=== PATIENT | female | born 1985 | race African-American/Black ===

== ENCOUNTER 2018-03-01 10:16 | Inpatient (IN) | payer BC ==
[2018-03-01] MEDS ORDERED: PROMETHAZINE 25 MG/ML VIAL IV PRN (10:33)
[2018-03-01] MEDS ORDERED: METHYLERGONOVINE 0.2MG/ML AMP IM PRN (10:33)
[2018-03-01] MEDS ORDERED: Ringers Lactate 1,000 ML IV PRN (10:33)
[2018-03-01] MEDS ORDERED: CARBOPROST TROME 250 MCG/ML IM PRN (10:33)
[2018-03-01] MEDS ORDERED: BUTORPHANOL 1 MG/ML INJ IV PRN (10:33)
[2018-03-01] MEDS ORDERED: Ringers Lactate 1,000 ML IV SCH (11:00)
[2018-03-01] MEDS ORDERED: OXYTOCIN/LR 20 UNIT/1,000 ML BAG IV SCH (11:45)
[2018-03-01 11:55] LABS: RPR Titer ND
[2018-03-01 12:13] LABS: Absolute Lymphocytes (CBC) 1.3 K/uL (0.7-4.9); Absolute Monocytes 0.5 K/uL (0.1-1.3); Basophils % 0.2 % (0-1.3); Eosinophils % 0.4 % (0-4.4); Hematocrit 27.8 % (36.0-45.0); Lymphocytes % 16.3 % (15.3-44.8); MCV 82.3 fL (80-100); MPV 9.6 fL (7.6-11.3); RBC Red Blood Cell Count 3.39 M/uL (3.86-4.86)
[2018-03-01 12:29] LABS: Urine Appearance CLEAR; Urine Bilirubin NEGATIVE (NEG); Urine Blood NEGATIVE (NEG); Urine Color YELLOW; Urine Glucose NEGATIVE (NEG); Urine Protein TRACE (NEG); Urine Urobilinogen 0.2 mg/dL (0.2-1.0)
[2018-03-01 12:49] LABS: Urine Microscopic Reflex NO UMIC
[2018-03-01] MEDS ORDERED: ROPIVACAINE HCL 100 ML IV PRN (13:04)
[2018-03-01] MEDS ORDERED: FENTANYL CITR 100 MCG/2 ML IV ONE (13:04)
[2018-03-01] MEDS ORDERED: ROPIVACAINE HCL 0.2% 20ML AMP IV ONE (13:05)
[2018-03-01] MEDS ORDERED: DOCUSATE NA/SENNA CONC 1 TAB PO PRN (17:28)
[2018-03-01] MEDS ORDERED: ACETAMINOPHEN 500 MG TAB PO PRN (17:28)
[2018-03-01] MEDS ORDERED: ONDANSETRON 4 MG (ODT) TAB PO PRN (17:28)
[2018-03-01] MEDS ORDERED: BISACODYL 10 MG RECTAL SUPP RECT PRN (17:28)
[2018-03-01] MEDS ORDERED: Oxycodone HCl/Acetaminophen 1 TAB TAB PO PRN (17:28)
[2018-03-01 18:04] VITALS: BMI 4701.1
[2018-03-01] MEDS: Oxycodone HCl/Acetaminophen 1 TAB TAB PO PRN (21:20)
--- NOTE | 2018-03-01 22:33 | P.OP ---
Date of Service: 03/01/18 Findings and Operative Technique Patient delivered a viable female in cephalic presentation on 03/01/18 at 17:07pm over an attempted episotomy. Infant was delivered in occiput posterior position with a nuchal cord x1 which was manually reduced. Once infant was delivered nose and mouth were suctioned with a suction bulb. Cord was then clamped and cut and infant was placed on the mother's abdomen for skin to skin bonding. Attention was then turned to the placenta which was then delivered with gentle traction. A significant amount of blood loss was then seen and methergine was given and pitocin started. Uterus was found to be firm. Perineum was then examined and noted to be a first degree laceration and was repaired with a 3.0 vicryl. Patient tolerated this well. EBL was 350 cc. APGARS were 9/ 9. Weight was found to be 7lb and 1 ounce. Both mom and baby are doing well. Will check hematocrit in a few hours due to blood loss.
[2018-03-01 23:09] LABS: RPR (Rapid Plasma Reagin) NON-REACT (NON-REACT)
[2018-03-02] MEDS: Oxycodone HCl/Acetaminophen 1 TAB TAB PO PRN (04:17)
--- NOTE | 2018-03-02 04:54 | HP ---
Date of Admission: 03/01/2018 History Of Present Illness: Theodore is a 32-year-old, 5, para 3-0-1-3, who presents at 39 we eks gestation for induction of labor. The patient has a history of 2 prior vaginal births and 1 cesa rean section and desires a trial of labor after prior . The patient understands the risks an d benefits of trial of labor and has fully consented to have this performed. She reports good movement. Denies vaginal bleeding. Has been having irregular contractions for the last week or so. The patient has been seen in my office throughout the care and has been compliant with all visits. She is Rh positive. GBS negative. She was seen by M during this due t o an echogenic foci being found on the baby's heart. Noninvasive testing was done, and it w as noted to be low risk. Glucose stress testing was normal. See record for further details . Physical Examination: Vital Signs: On admission, blood pressure 124/69, pulse of 86, respirations 18, temperature 98.7, pa in score 4/10. General: The patient resting comfortably in bed, in mild pain distress. Head and Neck: Normocephalic, supple. Heart: Regular rate and rhythm. Respiratory: Symmetric nonlabored breathing. Abdomen: Gravid. Extremities: Bilateral lower extremities, no clubbing, cyanosis, edema. Vaginal: Normal external female genitalia. Vagina is pink, moist, normal rugae. Cervix is 2 to 3 c m dilated, 50% to 60% effaced, -3 station. Rupture of membranes performed. Clear fluid noted. IUPC and scalp electrode were placed. heart rate monitoring category 2 tracing. [place] irregu lar contractions noted. Pitocin started at 2 milliunits. Laboratory Data: CBC: White blood cell count 7.8, hemoglobin 9.5, hematocrit 27.8, platelet count i s 133. Assessment And Plan: The patient is a 32-year-old, 5, para 3-0-1-3, who presents at 39 weeks gestation with history of prior section desiring a trial of labor after prior . Ru pture of membranes has been performed. Pitocin is started for labor augmentation. The patient is GB S negative. Continuous maternal monitoring will be performed. IUPC has been placed as well as scalp electrode. The patient desires epidural, will be requested and placed soon. Anticipate vaginal . HECTOR Voice ID: [id number]
[2018-03-02 05:42] LABS: Absolute Lymphocytes (CBC) 1.4 K/uL (0.7-4.9); Absolute Monocytes 0.9 K/uL (0.1-1.3); Absolute Neutrophil 9.2 K/uL (1.8-8.0); Basophils % 0.2 % (0-1.3); Eosinophils % 0.3 % (0-4.4); Hematocrit 24.7 % (36.0-45.0); Lymphocytes % 12.3 % (15.3-44.8); MCH 27.7 pg (27.0-35.0); MCV 82.5 fL (80-100); MPV 10.7 fL (7.6-11.3); Monocytes % 7.5 % (3.3-12.3); RBC Red Blood Cell Count 2.99 M/uL (3.86-4.86)
[2018-03-02] MEDS: IBUPROFEN 200 MG TAB PO PRN ×2 (07:50→13:45)
[2018-03-02 18:35] VITALS: BP 126/72; TEMP 98.2
[2018-03-03 19:49] LABS: HBsAG Nonreactive (Nonreactive)
== END 2018-03-02 20:00 | disposition home or self-care (01) | DRG 775 ==
LOC: 2ND-WC 10:16
PROVIDERS: ADMIT Student in an Organized Health Care Education/Training Program; ATTEND Student in an Organized Health Care Education/Training Program
PROC: 0HQ9XZZ Repair Perineum Skin, External Approach (ICD-10-PCS; principal; 2018-03-01)
PROC: 10E0XZZ Delivery of Products of Conception, External Approach (ICD-10-PCS; 2018-03-01)
PROC: 10907ZC Drainage of Amniotic Fluid, Therapeutic from Products of Conception, Via Natural or Artificial Opening (ICD-10-PCS; 2018-03-01)
DX: O70.0 First degree perineal laceration during delivery (principal); O34.219 Maternal care for unspecified type scar from previous cesarean delivery; O69.81X0 Labor and delivery complicated by cord around neck, without compression, not applicable or unspecified; Z3A.39 39 weeks gestation of pregnancy; Z37.0 Single live birth
CPT/HCPCS: 36415; 81003; 85014; 85025; 86592; 86850; 86900; 86901; 87340; 88307; J2210; J2590; J2795; J3010

== ENCOUNTER 2021-06-07 10:55 | Day surgery (SDC) | payer OTHER ==
[2021-06-07 11:34] LABS: Specific Gravity 1.025 (1.005-1.030)
[2021-06-07] MEDS ORDERED: Ringers Lactate 1,000 ML IV ONE (11:48)
[2021-06-07] MEDS ORDERED: propofoL 200 MG/20 ML VIAL IV ONE (12:10)
[2021-06-07] MEDS ORDERED: MIDAZOLAM HCL 2 MG/2 ML INJ ONE (12:10)
[2021-06-07] MEDS ORDERED: dexAMETHasone 10 MG/ML VIAL ONE (12:10)
[2021-06-07] MEDS ORDERED: FENTANYL CITR 100 MCG/2 ML ONE (12:10)
[2021-06-07] MEDS ORDERED: LIDOCAINE 1% MPF 5 ML VIAL ONE (12:10)
[2021-06-07] MEDS ORDERED: ROCURONIUM 50 MG/5 ML VIAL IV ONE (12:11)
[2021-06-07] MEDS ORDERED: ONDANSETRON 4 MG/2 ML VIAL ONE (12:11)
[2021-06-07] MEDS ORDERED: BUPIVACAINE 0.5% PF 10 ML VIAL ONE (12:57)
[2021-06-07] MEDS ORDERED: GLYCOPYRROLATE 0.2 MG/ML SYR ONE (13:18)
[2021-06-07 13:38] VITALS: O2SAT 100
--- NOTE | 2021-06-07 13:46 | P.OP ---
Pre-Op Diagnosis: Chronic tonsillitis, Tonsillolith Post-Op Diagnosis: Chronic tonsillitis, Tonsillolith Procedure: Tonsillectomy Anesthesia: Other (GA via ETT) Fluids/ Blood products: Other (900ml crystalloid) Estimated blood loss: Other (<5ml) Specimen: Other (bilateral tonsils) Findings: cryptic tonsils with multiple tonsilloliths Complications: None Implants: None Indication: Patient persistent issues in spite of good medical management. Details of Operation: The patient was brought to the operating room and placed under general anesthesia via endotracheal tube. The head of bed was turned 90 degrees. A Shoulder roll was placed and the neck extended. A head drape was applied. The McIvor mouth gag was placed and suspended from the Hinds stand. The oxygen concentrate was confirmed with the meeting facilitator and was less than forty percent. Weight-based dexamethasone was administered by the meeting facilitator. The soft palate was palpated and there was no submucous cleft. A red rubber catheter was placed in the nose and secured to retract the soft palate. The tonsils were noted to be cryptic and chronically inflammed. The left tonsil was grasped with a straight Allis clamp. The bovie electocautery was used to incision the mucosa over the anterior pillar and identify the tonsillar capsule. The tonsil was dissected using cautery and blunt dissection until free from soft tissue attachments. A tonsil ball was placed to aid hemostasis. The right tonsil was removed in a similar manner. The laryngeal mirror was used to visualize the nasopharynx. The adenoid size was small. The adenoids were not removed. Blood loss was minimal. All packing was removed. The tonsillar fossae were injected with 0.5% Marcaine with epinephrine. A total of 3 mL was used. A Salum sump orogastric tube was used to decompress the stomach. The red rubber catheter was removed and used to suction the nasopharynx and nasal cavity. The mouth gag was removed; there was no evidence of injury to the lips, teeth or tongue. The mandible was mobile. Disposition: The patient was then awakened from anesthesia and taken to the recovery room in stable condition.
[2021-06-07] MEDS ORDERED: MEPERIDINE HCL 25 MG/ML SYR ONE (14:05)
[2021-06-07] MEDS ORDERED: HYDROCOD 2.5mg-ACETAMIN 108mg/5mL Soln ONE (14:54)
[2021-06-07 15:51] VITALS: BP 142/85; TEMP 97.2
== END 2021-06-07 15:36 | disposition home or self-care (01) ==
LOC: OR 10:55
PROVIDERS: ATTEND Otolaryngology
PROC: 0CTPXZZ Resection of Tonsils, External Approach (ICD-10-PCS; principal; 2021-06-07 12:30)
DX: J35.01 Chronic tonsillitis (principal); R06.83 Snoring; J45.909 Unspecified asthma, uncomplicated; Z20.822 Contact with and (suspected) exposure to COVID-19; Z82.49 Family history of ischemic heart disease and other diseases of the circulatory system
CPT/HCPCS: 81025; 88304; 42826; U0002; J2704; J2250; J3010; J1100; J2175; J7120; J2405